=== PATIENT | female | born 1955 | race Caucasian/White ===

== ENCOUNTER → 2017-01-13 | Outpatient (CLI) | payer SELFPAY | END | disposition home or self-care (01) | LOC: RAD.S 14:14 | DX: N20.0 Calculus of kidney (principal) ==

== ENCOUNTER → 2017-03-04 | Outpatient (CLI) | payer SELFPAY | END | disposition home or self-care (01) | LOC: RAD.S 12:57 | DX: N20.2 Calculus of kidney with calculus of ureter (principal); K76.0 Fatty (change of) liver, not elsewhere classified ==

== ENCOUNTER 2017-03-08 09:33 | Day surgery (SDC) | payer SELFPAY | END 2017-03-08 14:00 | disposition home or self-care (01) | DX: N13.2 Hydronephrosis with renal and ureteral calculous obstruction (principal); E66.9 Obesity, unspecified; Z88.8 Allergy status to other drugs, medicaments and biological substances; Z88.2 Allergy status to sulfonamides; Z90.49 Acquired absence of other specified parts of digestive tract ==